=== PATIENT | male | born 1960 | race Caucasian/White ===

== ENCOUNTER 2017-03-25 13:30 | Emergency (ER) | payer OTHER ==
[2017-03-25 13:46] VITALS: TEMP 98.9
--- NOTE | 2017-03-25 14:00 | ED.PDOC ---
History of Present Illness - General Chief Complaint: Abdominal Pain Stated Complaint: abdominal pain Time Seen by Provider: 03/25/17 13:55 Information Source: patient, RN notes reviewed, Vital Signs reviewed Exam Limitations: no limitations - History of Present Illness Initial Comments: Patient comes in with c/o generalized abdominal pain for the past 2 days. Describes the pain as soreness. Pain is worse with touching abdomen and with laughing. No fever, chills, N/V/D/C, or urinary symptoms. No similar episodes in the past. Abdominal Pain Onset Location: generalized abdomen Pain Radiation: no radiation Quality: moderate, dull Timing/Duration: days - 2 Improving Factors: nothing Worsening Factors: movement Associated Symptoms: denies symptoms Review of Systems - Review of Systems Constitutional: States: no symptoms reported. Denies: chills, fever, malaise Respiratory: States: no symptoms reported Cardiology: States: no symptoms reported Gastrointestinal/Abdominal: States: see HPI, abdominal pain. Denies: constipation, diarrhea, nausea, vomiting Genitourinary: States: no symptoms reported. Denies: dysuria, pain Musculoskeletal: States: no symptoms reported Skin: States: no symptoms reported All other Systems: No Change from Baseline Past Medical History (General) - Patient Medical History Hx Cardiac Disorders: Yes Hx Congestive Heart Failure: No Hx Pacemaker: No Hx Hypertension: Yes Hx Diabetes: Yes Hx MRSA: No Surgical History: other - Vaccination History Hx Influenza Vaccination: No - Social History Hx Tobacco Use: No Hx Alcohol Use: No Hx Substance Use: No Hx Depression: No Hx Physical Abuse: No Hx Emotional Abuse: No Family Medical History - Family History Mother Family History: No Known Physical Exam - Physical Exam General Appearance: Alert, Comfortable, No apparent distress, Well Developed, Well Groomed, Well Hydrated, Well Nourished Neck: supple, normal inspection Respiratory: lungs clear, normal breath sounds, no respiratory distress, no accessory muscle use Cardiovascular/Chest: regular rate, rhythm, no gallop, no murmur Gastrointestinal/Abdominal: normal bowel sounds, soft, guarding, rebound, tenderness - generalized but worse in epigastric area Extremity: normal range of motion, normal inspection Neurologic: alert, normal mood/affect, oriented x 3 Skin Exam: normal color, warm/dry Special Observations: Laughing, Smiling Comments: Vital Signs 03/25/17 13:35 Temperature 98.9 F Pulse Rate [ 96 H pulse ox] Respiratory 18 Rate Blood Pressure 149/89 [left arm] O2 Sat by Pulse 98 Oximetry Progress - Progress Progress: 03/25/17 15:45 Patient is complaining of worsening pain. His allergy to Morphine is vomiting, no throat swelling or difficulty breathing. He has taken Dilaudid w/o difficulty in past. Will give Dilaudid 1mg and Zofran 4mg IV - Results/Orders Results/Orders: Laboratory Tests 03/25/17 03/25/17 14:19 14:19 WBC 9.5 RBC 4.91 Hgb 14.2 Hct 42.3 MCV 86.2 MCH 29.0 MCHC 33.6 RDW 13.8 Plt Count 205 MPV 9.2 Absolute Neuts (auto) 7.10 H Absolute Lymphs (auto) 1.30 Absolute Monos (auto) 0.90 H Absolute Eos (auto) 0.20 Absolute Basos (auto) 0.00 Neutrophils % 75.2 Lymphocytes % 13.2 L Monocytes % 9.4 H Eosinophils % 1.9 Basophils % 0.3 Sodium 139 Potassium 3.8 Chloride 106 Carbon Dioxide 26 Anion Gap 10.8 L BUN 11 Creatinine 0.93 BUN/Creatinine Ratio 11.8 Random Glucose 94 Serum Osmolality 276.7 Calcium 9.1 Total Bilirubin 0.8 AST 16 ALT 25 Alkaline Phosphatase 60 Serum Total Protein 7.3 Albumin 4.0 Globulin 3.3 Albumin/Globulin Ratio 1.2 Amylase 38 Lipase 32 - EKG/XRAY/CT CT Ordered: Yes - Thickening of bowel wall @ duodenum and prox Jujenum o/w nl per Rad Departure - Departure Clinical Impression: Duodenal anomaly Gastritis Qualifiers: Gastritis type: unspecified gastritis Chronicity: acute Gastritis bleeding: without bleeding Qualified Code(s): K29.00 - Acute gastritis without bleeding ICD-10 Supporting Text: Thickening of bowel wall of Duodenum and Prox. Jujenum Time of Disposition: 16:16 Disposition: Discharge to Home or Self Care Condition: Good Departure Forms: ED Discharge - Pt. Copy, Patient Portal Self Enrollment Instructions: DI for Gastritis Diet: resume usual diet Activity: increase activity as tolerated Referrals: Dale Bach MD [Primary Care Provider] - 1-2 Weeks RODNEY CHUN MD [Consulting Staff] - 1 Week Home Medications: Ambulatory Orders Glipizide 5 mg PO BID 11/17/13 Losartan Potassium [Cozaar] 50 mg PO AM 11/17/13 Metformin HCl 1,000 mg PO BID 11/17/13 HYDROcodone 5MG/APAP 325MG [[place] 5/325] 1 ea PO .Q4-6 HOURS PRN #0 tab Rivaroxaban [Xarelto] 10 mg PO QD #0 tab 11/21/13 Ondansetron Odt [Zofran ODT] 8 mg PO BID PRN #10 tab 09/21/15 Oseltamivir Phosphate [Tamiflu] 75 mg PO BID #10 cap 09/21/15 Additional Instructions: OTC Prilosec or Protonix daily in morning before eating.
[2017-03-25] MEDS ORDERED: ONDANSETRON INJ 4 MG/2 ML VIAL IV ONE (15:45)
[2017-03-25] MEDS ORDERED: HYDROmorphone HCL INJ 2 MG/ML VIAL IV ONE (15:45)
--- NOTE | 2017-03-25 16:06 | CT ---
EXAM: CT ABDOMEN PELVIS WITHOUT CONTRAST CLINICAL INDICATION: Generalized abd pain with rebound, MAIN TECHNIQUE: Multiple axial CT images of the abdomen and pelvis were obtained without IV or oral contrast. Coronal and sagittal reformatted images were included. This exam was performed according to our departmental dose-optimization program which includes use of Automated Exposure Control, adjustment of the mA and/or kV according to patient size and/or use of iterative reconstruction technique. COMPARISON: None. FINDINGS: Evaluation of the soft tissue structures and vasculature is limited given the lack of IV contrast. Chest: The visualized lung bases are clear, without nodule, lung masses or airspace consolidation. There are no pleural or pericardial effusions. Heart size appears within normal limits. Abdomen/Pelvis: The liver has normal size and contours. No focal intrahepatic mass lesion is identified. There is no extrahepatic biliary ductal dilatation. Gallbladder is present but contracted. The spleen, pancreas and adrenal glands have a normal noncontrast enhanced CT appearance. The kidneys have a normal noncontrast CT appearance, and there is no obstructive uropathy. No renal, ureteral or intravesicular calculi appreciated. There is moderate to marked mucosal thickening of loops of small bowel beginning at the mid duodenum and continued imaging through numerous small bowel loops. There is no finding of small bowel obstruction. No adjacent inflammatory changes. Appendix is normal and nondilated. Prostate and seminal vesicles have a normal noncontrast enhanced appearance.. Urinary bladder is grossly unremarkable. No free air or free fluid in the abdomen or pelvis. No enlarged lymphadenopathy identified in the abdomen or pelvis. Visualized vascular structures are grossly unremarkable, with normal course and caliber of the aorta and branch vessels. 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 There are moderately advanced hypertrophic degenerative changes of the right hip. There are also hypertrophic degenerative changes of the spine. No suspicious osseous lesions identified. IMPRESSION: Mucosal thickening of loops of bowel involving the duodenum and proximal jejunum, of uncertain etiology, compatible with nonspecific duodenitis/ileitis. Other etiologies are not excluded. Could consider direct visualization with endoscopy for further evaluation. Electronically signed by: Michael Davidson MD 03/25/2017 4:05 PM CDT Workstation: [id number]
[2017-03-25] MEDS ORDERED: PANTOPRAZOLE SODIUM IV 40 MG VIAL IV ONE (16:10)
[2017-03-25 16:31] VITALS: BP 131/74; O2SAT 96
== END 2017-03-25 16:31 | disposition home or self-care (01) ==
LOC: ER 13:30
DX: K29.00 Acute gastritis without bleeding (principal); I10 Essential (primary) hypertension; E11.9 Type 2 diabetes mellitus without complications
CPT/HCPCS: 36415; 74177; 80053; 82150; 83690; 85025; J1170; J2405

== ENCOUNTER → 2018-09-19 | Outpatient (CLI) | payer SELFPAY | LOC: LAB.O 07:50 | PROVIDERS: ATTEND Family Medicine | DX: R53.83 Other fatigue (principal); E11.9 Type 2 diabetes mellitus without complications ==

== ENCOUNTER → 2019-02-05 | Outpatient (CLI) | payer SELFPAY | LOC: YCFC.O 08:28 | PROVIDERS: ATTEND Family Medicine | DX: E11.9 Type 2 diabetes mellitus without complications (principal) ==

== ENCOUNTER → 2019-06-03 | Outpatient (CLI) | payer OTHER ==
--- NOTE | 2019-06-03 17:10 | US ---
EXAM DESCRIPTION: Soft Tissue,Head/Neck: ULTRASOUND. CLINICAL HISTORY: 58 years Male Cervical lymphadenopathy COMPARISON: None Available. TECHNIQUE: Transcutaneous scanning: Urban-scale and Doppler modes. FINDINGS: A large hypoechoic mass is visible in the space between the branches of the left internal and external carotid just distal to the bifurcation. This mass measures 4.1 x 2.7 x 2.6 cm with wider than tall orientation and posterior acoustic enhancement. Mostly circumscribed and partially lobulated margins. Branching vessels seen by color Doppler within the periphery of the mass. No cystic component or calcifications. 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 A less hypoechoic mass measures 1.5 x 0.9 x 0.7 cm and may represent a lymph node. Nonvascular. A second hypoechoic mass with echogenic hilum measures 1.4 x 0.6 cm abutting the large carotid mass. No dominant solid masses or cysts. No large calcifications. 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 Differential includes schwannoma, bagel or sympathetic, and metastatic lymph node, Adjacent lymph nodes more likely than smaller para gangliomas. Consider further evaluation with MRI with and without gadolinium IV contrast, CT with contrast, or repeat ultrasound of the neck to evaluate for other masses. Consider ENT/neurosurgical consult. CRITICAL COMMUNICATION: The critical value was discussed directly by phone by Dr. Nichols, with Dr. Oskar Bach at approximately 1615 hours, on June 03, 2019. Electronically signed by: Douglas Nichols MD 06/03/2019 5:09 PM [employer]
== END | disposition home or self-care (01) ==
LOC: US 14:27
PROVIDERS: ATTEND Family Medicine
DX: R59.0 Localized enlarged lymph nodes (principal)

== ENCOUNTER → 2019-06-06 | Outpatient (CLI) | payer OTHER | END | disposition home or self-care (01) | LOC: YCFC.O 09:20 | PROVIDERS: ATTEND Family Medicine | DX: D44.7 Neoplasm of uncertain behavior of aortic body and other paraganglia (principal) ==

== ENCOUNTER → 2019-07-21 | Outpatient (CLI) | payer OTHER ==
--- NOTE | 2019-07-21 11:48 | CT ---
EXAM DESCRIPTION: Soft Tissue Neck w/Contrast CLINICAL HISTORY: 59 years Male, SWELLING,MASS,LUMP COMPARISON: None. TECHNIQUE: This exam was performed according to our departmental dose-optimization program, which includes automated exposure control, adjustment of the mA and/or kV according to patient size and/or use of iterative reconstruction technique. Enhanced examination of the neck with MPR reformatted images with an area of concern marked over the left lower lateral neck. FINDINGS: On the left deep to the area of marked concern is a relatively homogeneous circumscribed intermediate density 4.2 x 2.9 x 2.5 cm soft tissue mass along the anterior margin of the left sternocleidomastoid. With attenuation value of approximately 80 Hounsfield units most consistent with an enhancing solid mass. A proteinaceous filled cyst is considered unlikely. A debris-filled intermediate increased density brachial cleft cyst cannot be completely excluded. An enlarged lymph node is strongly suspected and further evaluation sonographically with consideration for sonographically guided fine-needle aspiration or core biopsy recommended. The inferior extent of the mass lies just posterior to the submandibular gland and the mass lies just anterolateral to the carotid and jugular structures on the left. Small reactive subcentimeter and centimeter sized upper normal lymph nodes are present bilaterally. Continuing inferiorly thoracic inlet as well as superior mediastinum and upper portion of the anterior mediastinum appear normal. No pulmonary apical mass noted. Region of the trachea as well as the larynx and hypopharynx appears symmetric and normal with normal tissue planes maintained at the base of the tongue. The prevertebral soft tissues and parapharyngeal space remain normal in appearance and symmetric normal parotid glands as well as submandibular glands noted. Lateral pharyngeal sidewall appears unremarkable. Petrous ridges and mastoid air cell systems are normally pneumatized. Paranasal sinuses are abnormal with bilateral moderately extensive ethmoid sinus disease and marked sclerosis and complete opacification of the dominant right sphenoid sinus noted. Large retention cyst or polyp almost completely fills the left maxillary sinus. Frontal sinuses are essentially clear. IMPRESSION: 1. Circumscribed discrete homogeneous 4.2 cm soft tissue mass left-sided the neck at the angle of the jaw along the anterior sternocleidomastoid margin most consistent with an enlarged left anterior triangle lymph node. A debris-filled cyst or branchial cleft cyst is thought less likely. Sonographic evaluation and consideration for fine needle aspiration or core biopsy recommended if this persists. 2. Small subcentimeter and centimeter sized reactive lymph nodes both sides of the neck without conglomerate additional neck lymphadenopathy or abnormality at the thoracic inlet or superior mediastinum. 3. Clear mastoid air cell systems with extensive changes of sinusitis bilaterally involving both ethmoid sinuses as well as large retention cyst or polyp filling the left maxillary sinus. Dense sclerosis of the dominant right sphenoid sinus suggests chronic sinus opacification. Frontal sinuses are clear. 4. Modest degenerative changes cervical spine with no destructive process seen. Electronically signed by: Marquez Beverly MD 07/21/2019 11:46 AM [employer]
== END ==
LOC: CT 09:33
PROVIDERS: ATTEND Otolaryngology
DX: R22.1 Localized swelling, mass and lump, neck (principal); J34.89 Other specified disorders of nose and nasal sinuses; M47.892 Other spondylosis, cervical region

== ENCOUNTER → 2019-12-03 | Outpatient (CLI) | payer BC | LOC: YCFC.O 10:25 | PROVIDERS: ATTEND Family Medicine | DX: I10 Essential (primary) hypertension (principal) ==